=== PATIENT | male | born 1940 | race Caucasian/White ===

== ENCOUNTER 2017-06-28 14:03 | Emergency (ER) | payer MEDICARE ==
[2017-06-28] MEDS ORDERED: CLINDAMYCIN 600MG/4ML VIAL 600 MG in 0.9 % SODIUM CHLORIDE 100ML 100 ML IV ONE (14:24)
--- NOTE | 2017-06-28 14:30 | Emergency Department Record ---
History of Present Illness - General Chief complaint: Extremity Problem Stated complaint: SWELLING ON RT ELBOW Time Seen by Provider: 06/28/17 14:20 Source: Patient, Family Mode of Arrival: Ambulatory Limitations: No limitations - History of Present Illness Initial comments: 77 yo male presents with one day of right elbow redness, swelling and pain. He is unsure of any injury. No fever. He did have a small scab in that area. No pus or drainage. No history of gout or bursitis. He has full ROM without any pain. No swelling of the arm except mild locally at the right elbow. MD Complaint: Extremity pain, Extremity swelling, Joint pain, Joint swelling Onset/Timin -: Hour(s) Location: Right, Elbow History of Same: No Severity scale (1-10): 5 Consistency: Intermittent Improves with: Nothing Worsens with: Palpation - Related Data Home Medications Medication Instructions Recorded Confirmed Last Taken Albuterol Sulfate [Ventolin Hfa] 2 puff IH QID 06/18/16 06/28/17 06/28/17 Aspirin Chewable 81 mg PO DAILY 06/18/16 06/28/17 06/28/17 Atorvastatin Calcium [Lipitor] 20 mg PO DAILY 06/18/16 06/28/17 06/28/17 Furosemide [Lasix] 20 mg PO DAILY 06/28/17 06/28/17 06/28/17 Previous Rx's Medication Instructions Recorded Diltiazem HCl [Cardizem Cd] 240 mg PO DAILY #30 capcr 06/22/16 Warfarin Sodium [Coumadin] 5 mg PO DAILY #30 tablet 06/22/16 Clindamycin HCl [Cleocin HCl] 300 mg PO QID #28 capsule 06/28/17 Allergies Allergy/AdvReac Type Severity Reaction Status Date / Time No Known Allergies Allergy Unknown no Verified 06/28/17 14:10 [NO KNOWN ALLERGIES] allergies Travel Screening - Travel/Exposure Within Last 30 Days Have you traveled within the last 30 days?: No - Travel/Exposure Within Last Year Have you traveled outside the [place] in the last year?: No - Additonal Travel Details Have you been exposed to anyone with a communicable illness?: No - Travel Symptoms Symptom Screening: None Review of Systems Constitutional: Denies: Chills, Fever, Malaise, Weakness Eyes: Denies: Eye discharge ENT: Denies: Congestion, Throat pain Respiratory: Denies: Cough Cardiovascular: Denies: Chest pain, Syncope Endocrine: Denies: Fatigue Gastrointestinal: Denies: Abdominal pain, Diarrhea, Nausea, Vomiting Genitourinary: Denies: Dysuria, Frequency, Hematuria Musculoskeletal: Reports: As per HPI, Joint swelling. Denies: Arthralgia, Myalgia Skin: Reports: As per HPI, Change in color. Denies: Bruising Neurological: Denies: Headache Psychiatric: Denies: Anxiety Hematological/Lymphatic: Denies: Easy bleeding, Easy bruising, Swollen glands Past Medical History - SOCIAL HISTORY Smoking Status: Former smoker Alcohol Use: None Drug Use: None - RESPIRATORY Hx Respiratory Disorders: Yes Comment:: emphysema - CARDIOVASCULAR Hx Cardio Disorders: Yes Hx Hypertension: Yes Comment:: high cholesterol - NEURO Hx Neuro Disorders: No - GI Hx GI Disorders: No - Hx Genitourinary Disorders: No - ENDOCRINE Hx Endocrine Disorders: No - MUSCULOSKELETAL Hx Musculoskeletal Disorders: No - PSYCH Hx Psych Problems: No - HEMATOLOGY/ONCOLOGY Hx Hematology/Oncology Disorders: No Family Medical History Any Significant Family History?: Yes Hx Cancer: Mother Hx Heart Disease: Grandparents Hx Resp Disorders: Father Physical Exam - General General Appearance: Alert, Oriented x3, Cooperative, No acute distress Limitations: No limitations - Head Head exam: Normal inspection - Eye Eye exam: Normal appearance - ENT ENT exam: Normal exam Ear exam: Normal external inspection Nasal Exam: Normal inspection Mouth exam: Normal external inspection - Neck Neck exam: Normal inspection - Cardiovascular Cardiovascular Exam: Regular rate, Normal rhythm, Normal heart sounds Peripheral Pulses: 2+: Radial (R) - Rectal Rectal exam: Deferred - exam: Deferred - Extremities Extremities exam: Full ROM, Joint swelling (mild swelling and redness of the right posterior elbow, very soft, no fluctuance, no drainage, full ROM without any pain), Normal capillary refill. negative: Normal inspection, Pedal edema - Neurological Neurological exam: Alert, Oriented X3 - Psychiatric Psychiatric exam: Normal affect, Normal mood - Skin Skin exam: Erythema Course Vital Signs 06/28/17 14:16 Temperature 98.4 F Pulse Rate 108 H Respiratory 20 Rate Blood Pressure 127/73 Pulse Ox 93 L - Reevaluation(s) Reevaluation #1: The patient was seen and examined He has likely right elbow cellulitis vs bursitis 06/28/17 14:28 XR reviewed STS CW bursitis CBC reviewed. WBC 10.4 with Plt of 96. 06/28/17 15:20 Reevaluation #2: I SW Dr Fuentes He will recheck the patient in his office this week 06/28/17 15:36 Medical Decision Making - Lab Data Result diagrams: 06/28/17 15:00 06/28/17 15:00 Disposition Disposition: Discharge Clinical Impression: Cellulitis Qualifiers: Site of cellulitis: extremity Site of cellulitis of extremity: upper extremity Laterality: right Qualified Code(s): L03.113 - Cellulitis of right upper limb Bursitis Qualifiers: Bursitis location: elbow Elbow bursitis location: olecranon bursitis Laterality : right Qualified Code(s): M70.21 - Olecranon bursitis, right elbow Disposition: Home, Self-Care Condition: (1) Good Instructions: Elbow Bursitis (ED) Additional Instructions: Call Dr Fuentes for follow up this week to recheck the elbow Take the Antibiotic every 6 hours Keep the Roverto Wrap on to minimize swelling Prescriptions: Clindamycin HCl [Cleocin HCl] 300 mg PO QID #28 capsule Forms: Patient Portal Access Time of Disposition: 15:36 Quality - Quality Measures Quality Measures: N/A - Blood Pressure Screening Does Patient Have Any of the Following: No Blood Pressure Classification: Pre-Hypertensive BP Reading Systolic Measurement: 127 Diastolic Measurement: 73 Screening for High Blood Pressure: < Pre-Hypertensive BP, F/U Documented > [ G8950] Pre-Hypertensive Follow-up Interventions: Referral to alternative/primary care provider.
[2017-06-28 15:11] LABS: HEMATOCRIT 46.2 % (42.0-52.0); HEMOGLOBIN 15.7 gm/dl (14.0-18.0); MEAN CELL VOLUME 88.3 fl (81-97); PLATELET COUNT 96 K/uL (130-400); RED BLOOD COUNT 5.23 M/uL (4.40-5.70); WHITE BLOOD COUNT W/O DIFF 10.4 K/uL (4.2-12.2)
[2017-06-28 15:24] LABS: PLATELET ESTIMATE DECREASED (NORMAL)
[2017-06-28 15:27] LABS: ALB/GLOB RATIO 1.3 (1.1-1.8); ALKALINE PHOSPHATASE 90 U/L (38-126); ALT/SGPT 52 U/L (21-72); ANION GAP 6.6 (7-16); AST/SGOT 23 U/L (17-59); BILIRUBIN,TOTAL 0.74 mg/dL (0.2-1.3); BLOOD UREA NITROGEN 18 mg/dL (9-20); C-REACTIVE PROTEIN 2.3 mg/dL (0.0-0.9); CARBON DIOXIDE 31.4 mmol/L (22-30); CREATININE 1.1 mg/dL (0.66-1.25); EST GLOMERULAR FILTRATION RATE > 60 ml/min; GLUCOSE,RANDOM 190 mg/dL (70-110)
--- NOTE | 2017-06-29 12:46 | RADIOLOGY REPORT ---
EXAM: RIGHT ELBOW, FOUR VIEWS HISTORY: ACUTE RIGHT ELBOW PAIN AND REDNESS. TECHNIQUE: Four views of the right elbow were obtained. Comparison: None. FINDINGS: Prominent soft tissue swelling superficial to the right olecranon. No fracture or large joint effusion. No soft tissue gas. IMPRESSION: SOFT TISSUE SWELLING SUPERFICIAL TO THE RIGHT OLECRANON PROCESS WHICH MAY REFLECT BURSITIS. NO ACUTE OSSEOUS ABNORMALITY OF THE RIGHT ELBOW. JOB NUMBER: [id number] MTDD
== END 2017-06-28 15:46 | disposition home or self-care (01) ==
LOC: ER 14:03
DX: L03.113 Cellulitis of right upper limb (principal); M70.21 Olecranon bursitis, right elbow
CPT/HCPCS: 80053; 84550; 85027; 86140; 96365; 99284

== ENCOUNTER 2017-10-19 09:59 | Emergency (ER) | payer MEDICARE ==
[2017-10-19] MEDS: IPRATROPIUM/ALBUTEROL (0.5MG/3MG) NEB INH ONE (10:31)
--- NOTE | 2017-10-19 10:31 | Emergency Department Record ---
History of Present Illness - General Chief Complaint: Difficulty Breathing Stated Complaint: YING/COPD Time Seen by Provider: 10/19/17 10:19 Source: Patient, Family Mode of Arrival: Ambulatory - History of Present Illness Initial Comments: Patient SOB and cough for 5-6 days and family members have bronchitis. Using his albuterol neb every 4 hours over the last few days. Dry cough. History of Atrial fib with no chest pain and on coumadin Onset/Timin -: Days(s) Improves With: Bronchodilators Worsens With: Exertion Known History Of: COPD Context: Other Associated Symptoms: Cough Treatments Prior to Arrival: Bronchodilator Treatment Prior to Arrival Comment:: Neb - Related Data Home Oxygen Therapy: No Previous Rx's Medication Instructions Recorded Diltiazem HCl [Cardizem Cd] 240 mg PO DAILY #30 capcr 06/22/16 Warfarin Sodium [Coumadin] 5 mg PO DAILY #30 tablet 06/22/16 Azithromycin 250 mg PO DAILY #6 tablet 10/19/17 Prednisone [Prednisone 10Mg] 10 mg PO ASDIR #30 tab 10/19/17 Allergies Allergy/AdvReac Type Severity Reaction Status Date / Time No Known Allergies Allergy Unknown no Verified 10/19/17 10:04 [NO KNOWN ALLERGIES] allergies Travel Screening - Travel/Exposure Within Last 30 Days Have you traveled within the last 30 days?: No - Travel/Exposure Within Last Year Have you traveled outside the [place] in the last year?: No - Additonal Travel Details Have you been exposed to anyone with a communicable illness?: No - Travel Symptoms Symptom Screening: None Review of Systems Reviewed: No additional complaints except as noted below Constitutional: Reports: As per HPI. Denies: Chills, Fever, Malaise, Night sweats, Weakness, Weight change Eyes: Reports: As per HPI. Denies: Eye discharge, Eye pain, Photophobia, Vision change ENT: Reports: As per HPI. Denies: Congestion, Dental pain, Ear pain, Epistaxis , Hearing loss, Throat pain Respiratory: Reports: As per HPI, Cough, Dyspnea, Wheezes. Denies: Hemoptysis, Stridor Cardiovascular: Reports: As per HPI. Denies: Arrhythmia, Chest pain, Dyspnea on exertion, Edema, Murmurs, Orthopnea, Palpitations, Paroxysmal nocturnal dyspnea, Rheumatic Fever, Syncope Endocrine: Reports: As per HPI. Denies: Fatigue, Heat or cold intolerance, Polydipsia, Polyuria Gastrointestinal: Reports: As per HPI. Denies: Abdominal pain, Constipation, Diarrhea, Hematemesis, Hematochezia, Melena, Nausea, Vomiting Genitourinary: Reports: As per HPI. Denies: Dysuria, Frequency, Hematuria, Incontinence, Retention, Testicular pain, Testicular mass, Urgency Musculoskeletal: Reports: As per HPI. Denies: Arthralgia, Back pain, Gout, Joint swelling, Myalgia, Neck pain Skin: Reports: As per HPI. Denies: Bruising, Change in color, Change in hair/ nails, Lesions, Pruritus, Rash Neurological: Reports: As per HPI. Denies: Abnormal gait, Confusion, Headache, Numbness, Paresthesias, Seizure, Tingling, Tremors, Vertigo, Weakness Psychiatric: Reports: As per HPI. Denies: Anxiety, Auditory hallucinations, Depression, Homicidal thoughts, Suicidal thoughts, Visual hallucinations Hematological/Lymphatic: Reports: As per HPI. Denies: Anemia, Blood Clots, Easy bleeding, Easy bruising, Swollen glands Past Medical History - SOCIAL HISTORY Smoking Status: Former smoker Alcohol Use: None Drug Use: None - RESPIRATORY Hx Respiratory Disorders: Yes Comment:: emphysema - CARDIOVASCULAR Hx Cardio Disorders: Yes Hx Hypertension: Yes Hx Irregular Heartbeat: Yes (A fib) Comment:: high cholesterol - NEURO Hx Neuro Disorders: No - GI Hx GI Disorders: No - Hx Genitourinary Disorders: No - ENDOCRINE Hx Endocrine Disorders: No - MUSCULOSKELETAL Hx Musculoskeletal Disorders: No - PSYCH Hx Psych Problems: No - HEMATOLOGY/ONCOLOGY Hx Hematology/Oncology Disorders: No Family Medical History Any Significant Family History?: Yes Hx Cancer: Mother Hx Heart Disease: Grandparents Hx Resp Disorders: Father Physical Exam - General General Appearance: Alert, Oriented x3, Cooperative, Mild distress - Head Head exam: Normal inspection - Eye Eye exam: Normal appearance, PERRL Pupils: Normal accommodation - ENT ENT exam: Normal exam, Mucous membranes moist, Normal external ear exam, Normal orophraynx, TM's normal bilaterally Ear exam: Normal external inspection. negative: External canal tenderness Nasal Exam: Normal inspection. negative: Discharge, Sinus tenderness Mouth exam: Normal external inspection, Tongue normal Teeth exam: Normal inspection. negative: Dental caries Throat exam: Normal inspection. negative: Tonsillar erythema, Tonsillar exudate - Neck Neck exam: Normal inspection, Full ROM. negative: Tenderness - Respiratory Respiratory exam: Wheezes. negative: Respiratory distress - Cardiovascular Cardiovascular Exam: Regular rate, Normal rhythm, Normal heart sounds - GI/Abdominal GI/Abdominal exam: Soft, Normal bowel sounds. negative: Tenderness - Rectal Rectal exam: Deferred - exam: Deferred - Extremities Extremities exam: Normal inspection, Full ROM, Normal capillary refill. negative: Tenderness - Back Back exam: Reports: Normal inspection, Full ROM. Denies: Muscle spasm, Rash noted, Tenderness - Neurological Neurological exam: Alert, Normal gait, Oriented X3, Reflexes normal - Psychiatric Psychiatric exam: Normal affect, Normal mood - Skin Skin exam: Dry, Intact, Normal color, Warm Course Vital Signs 10/19/17 10:06 Temperature 97.6 F Pulse Rate 80 Respiratory 22 Rate Blood Pressure 154/107 Pulse Ox 86 L - Reevaluation(s) Reevaluation #1: breathing better after duoneb treatment 10/19/17 10:42 Medical Decision Making - Data Complexity MDM Data: Labs Ordered and/or Reviewed, X-Ray Ordered and/or Reviewed (chest copd, with chronic granulomas) - Lab Data Result diagrams: 10/19/17 10:15 10/19/17 10:15 Disposition Clinical Impression: COPD exacerbation, Bronchitis Atrial fibrillation Qualifiers: Atrial fibrillation type: chronic Qualified Code(s): I48.2 - Chronic atrial fibrillation Disposition: Home, Self-Care Condition: (1) Good Instructions: Emphysema (ED), COPD (Chronic Obstructive Pulmonary Disease) (ED) , Acute Bronchitis (ED) Additional Instructions: follow up with Dr. Fuentes on tuesday AM sooner if worse Prescriptions: Azithromycin 250 mg PO DAILY #6 tablet Prednisone [Prednisone 10Mg] 10 mg PO ASDIR #30 tab Forms: Patient Portal Access Time of Disposition: 12:00 Quality - Quality Measures Quality Measures: N/A - Blood Pressure Screening Does Patient Have Any of the Following: No Blood Pressure Classification: Hypertensive Reading Systolic Measurement: 154 Diastolic Measurement: 107 Screening for High Blood Pressure: < First Hypertensive BP, F/U Documented > [ G8950] First Hypertensive Follow-up Interventions: Referral to alternative/primary care provider.
[2017-10-19] MEDS: METHYLPREDNISOLONE PF 125MG/VIAL IVP ONE (10:41)
[2017-10-19 10:43] LABS: BASO % 0.6 % (0-6); EOS % 5.1 % (0-6); GRAN % 57.7 % (47-80); HEMATOCRIT 47.1 % (42.0-52.0); HEMOGLOBIN 15.7 gm/dl (14.0-18.0); LYMPH % 27.8 % (16-45); MEAN CELL VOLUME 90.1 fl (81-97); MEAN CORPUSCULAR HGB CONC 33.3 g/dl (32-36); MEAN PLATELET VOLUME 10.4 fl (7.4-10.4); MONO % 8.8 % (0-9); PLATELET COUNT 198 K/uL (130-400); RED BLOOD COUNT 5.23 M/uL (4.40-5.70); RED CELL DISTRIBUTION WIDTH 14.9 % (11.5-14.5); WHITE BLOOD COUNT W/O DIFF 6.2 K/uL (4.2-12.2)
[2017-10-19 10:48] LABS: BLOOD UREA NITROGEN 14 mg/dL (8-23); EST GLOMERULAR FILTRATION RATE > 60 mL/min
[2017-10-19 10:51] LABS: INR 1.9; PROTHROMBIN TIME (PATIENT) 20.7 SECONDS (9.5-12.1)
[2017-10-19 10:52] LABS: GLUCOSE,RANDOM 115 mg/dL (74-109)
[2017-10-19] MEDS: 0.9 % SODIUM CHLORIDE 500ML 500 ML IV SCH (11:50)
[2017-10-19] MEDS: CEFTRIAXONE SODIUM 1 GM in 0.9 % SODIUM CHLORIDE 100ML 100 ML IVPB ONE (11:54)
[2017-10-19] MEDS: AZITHROMYCIN 500 MG TABLET PO ONE (11:55)
--- NOTE | 2017-10-20 08:41 | RADIOLOGY REPORT ---
EXAM: CHEST, TWO VIEWS HISTORY: NONPRODUCTIVE COUGH FOR SIX DAYS, COPD. TECHNIQUE: Two views of the chest were obtained. Comparison: Chest x-ray 04/29/16. FINDINGS: The lungs are hyperinflated with diffuse lucency consistent with emphysema. Scattered calcified granulomata. The lungs are clear. The cardiac silhouette is not enlarged. The diaphragm is flattened. Osteopenia. IMPRESSION: 1. ADVANCED EMPHYSEMA. NO ACUTE INTRATHORACIC PROCESS. 2. OLD GRANULOMATOUS DISEASE. JOB NUMBER: [id number] MTDD
== END 2017-10-19 12:54 | disposition home or self-care (01) ==
LOC: ER 09:59
DX: J44.1 Chronic obstructive pulmonary disease with (acute) exacerbation (principal); J20.9 Acute bronchitis, unspecified; J44.0 Chronic obstructive pulmonary disease with (acute) lower respiratory infection; I48.2 Chronic atrial fibrillation; I10 Essential (primary) hypertension; Z79.01 Long term (current) use of anticoagulants; Z87.891 Personal history of nicotine dependence
CPT/HCPCS: 71020; 80048; 85025; 85610; 94640; 96365; 96375; 99284; J2930; J7040

== ENCOUNTER 2018-03-08 17:35 | Emergency (ER) | payer MEDICARE ==
[2018-03-08] MEDS: METHYLPREDNISOLONE PF 125MG/VIAL IVP ONE (17:50)
[2018-03-08] MEDS: IPRATROPIUM/ALBUTEROL (0.5MG/3MG) NEB INH ONE (17:59)
--- NOTE | 2018-03-08 18:03 | Emergency Department Record ---
History of Present Illness - General Chief Complaint: Cough Stated Complaint: COUGH,BACK PAIN,CHILLS, Time Seen by Provider: 03/08/18 17:44 Source: Patient, RN notes reviewed Mode of Arrival: Ambulatory - History of Present Illness Initial Comments: cough and low back pain and congestion tired and chilles and fever. Visiting nurse told him to go into get checked out. Patient is coughing up purulent phlegm MD Complaint: Cough Onset/Timin -: Days(s) Consistency: Intermittent - Related Data Previous Rx's Medication Instructions Recorded Diltiazem HCl [Cardizem Cd] 240 mg PO DAILY #30 capcr 06/22/16 Azithromycin 250 mg PO DAILY #6 tablet 03/08/18 Cephalexin [Keflex] 500 mg PO QID #40 cap 03/08/18 Prednisone [Prednisone 10Mg] 10 mg PO ASDIR #30 tab 03/08/18 Allergies Allergy/AdvReac Type Severity Reaction Status Date / Time No Known Allergies Allergy Unknown no Verified 03/08/18 17:39 [NO KNOWN ALLERGIES] allergies Travel Screening - Travel/Exposure Within Last 30 Days Have you traveled within the last 30 days?: No - Travel/Exposure Within Last Year Have you traveled outside the [place] in the last year?: No - Additonal Travel Details Have you been exposed to anyone with a communicable illness?: No - Travel Symptoms Symptom Screening: None Review of Systems Reviewed: No additional complaints except as noted below Constitutional: Reports: As per HPI. Denies: Chills, Fever, Malaise, Night sweats, Weakness, Weight change Eyes: Reports: As per HPI. Denies: Eye discharge, Eye pain, Photophobia, Vision change ENT: Reports: As per HPI. Denies: Congestion, Dental pain, Ear pain, Epistaxis , Hearing loss, Throat pain Respiratory: Reports: As per HPI, Cough. Denies: Dyspnea, Hemoptysis, Stridor, Wheezes Cardiovascular: Reports: As per HPI. Denies: Arrhythmia, Chest pain, Dyspnea on exertion, Edema, Murmurs, Orthopnea, Palpitations, Paroxysmal nocturnal dyspnea, Rheumatic Fever, Syncope Endocrine: Reports: As per HPI. Denies: Fatigue, Heat or cold intolerance, Polydipsia, Polyuria Gastrointestinal: Reports: As per HPI. Denies: Abdominal pain, Constipation, Diarrhea, Hematemesis, Hematochezia, Melena, Nausea, Vomiting Genitourinary: Reports: As per HPI. Denies: Dysuria, Frequency, Hematuria, Incontinence, Retention, Testicular pain, Testicular mass, Urgency Musculoskeletal: Reports: As per HPI. Denies: Arthralgia, Back pain, Gout, Joint swelling, Myalgia, Neck pain Skin: Reports: As per HPI. Denies: Bruising, Change in color, Change in hair/ nails, Lesions, Pruritus, Rash Neurological: Reports: As per HPI. Denies: Abnormal gait, Confusion, Headache, Numbness, Paresthesias, Seizure, Tingling, Tremors, Vertigo, Weakness Psychiatric: Reports: As per HPI. Denies: Anxiety, Auditory hallucinations, Depression, Homicidal thoughts, Suicidal thoughts, Visual hallucinations Hematological/Lymphatic: Reports: As per HPI. Denies: Anemia, Blood Clots, Easy bleeding, Easy bruising, Swollen glands Past Medical History - SOCIAL HISTORY Smoking Status: Former smoker Alcohol Use: None Drug Use: None - RESPIRATORY Hx Respiratory Disorders: Yes Hx COPD: Yes Comment:: emphysema - CARDIOVASCULAR Hx Cardio Disorders: Yes Hx Hypertension: Yes Hx Irregular Heartbeat: Yes (A fib, always in A-fib) Comment:: high cholesterol - NEURO Hx Neuro Disorders: No - GI Hx GI Disorders: No - Hx Genitourinary Disorders: No - ENDOCRINE Hx Endocrine Disorders: No - MUSCULOSKELETAL Hx Musculoskeletal Disorders: No - PSYCH Hx Psych Problems: No - HEMATOLOGY/ONCOLOGY Hx Hematology/Oncology Disorders: No Family Medical History Any Significant Family History?: Yes Hx Cancer: Mother Hx Heart Disease: Grandparents Hx Resp Disorders: Father Physical Exam - General General Appearance: Alert, Oriented x3, Cooperative, No acute distress - Head Head exam: Normal inspection - Eye Eye exam: Normal appearance, PERRL Pupils: Normal accommodation - ENT ENT exam: Normal exam, Mucous membranes moist, Normal external ear exam, Normal orophraynx, TM's normal bilaterally Ear exam: Normal external inspection. negative: External canal tenderness Nasal Exam: Normal inspection. negative: Discharge, Sinus tenderness Mouth exam: Normal external inspection, Tongue normal Teeth exam: Normal inspection. negative: Dental caries Throat exam: Normal inspection. negative: Tonsillar erythema, Tonsillar exudate - Neck Neck exam: Normal inspection, Full ROM. negative: Tenderness - Respiratory Respiratory exam: Decreased breath sounds. negative: Respiratory distress - Cardiovascular Cardiovascular Exam: Regular rate, Normal rhythm, Normal heart sounds - GI/Abdominal GI/Abdominal exam: Soft, Normal bowel sounds. negative: Tenderness - Rectal Rectal exam: Deferred - exam: Deferred - Extremities Extremities exam: Normal inspection, Full ROM, Normal capillary refill. negative: Tenderness - Back Back exam: Reports: Normal inspection, Full ROM. Denies: Muscle spasm, Rash noted, Tenderness - Neurological Neurological exam: Alert, Normal gait, Oriented X3, Reflexes normal - Psychiatric Psychiatric exam: Normal affect, Normal mood - Skin Skin exam: Dry, Intact, Normal color, Warm Course Vital Signs 03/08/18 17:43 Temperature 98.9 F Pulse Rate 110 H Respiratory 20 Rate Blood Pressure 138/103 Pulse Ox 94 L - Reevaluation(s) Reevaluation #1: talked to patient about hospital admission and outpatient therapy with close follow up and he wants to try treatment at home. 03/08/18 18:30 Medical Decision Making - Lab Data Result diagrams: 03/08/18 17:57 03/08/18 17:57 Disposition Clinical Impression: COPD (chronic obstructive pulmonary disease) with acute bronchitis COPD (chronic obstructive pulmonary disease) with emphysema Qualifiers: Emphysema type: panlobular Qualified Code(s): J43.1 - Panlobular emphysema Pneumonia Qualifiers: Pneumonia type: due to unspecified organism Laterality: right Lung location: lower lobe of lung Qualified Code(s): J18.1 - Lobar pneumonia, unspecified organism Disposition: Home, Self-Care Condition: (1) Good Instructions: Pneumonitis (ED), COPD (Chronic Obstructive Pulmonary Disease) ( ED) Additional Instructions: follow up with Dr. Fuentes tomorrow at 1 am If breathing gets worse return to the ED Prescriptions: Azithromycin 250 mg PO DAILY #6 tablet Cephalexin [Keflex] 500 mg PO QID #40 cap Prednisone [Prednisone 10Mg] 10 mg PO ASDIR #30 tab Forms: Patient Portal Access Time of Disposition: 18:37 Quality - Quality Measures Quality Measures: N/A - Blood Pressure Screening Does Patient Have Any of the Following: No, Active Dx of HTN Blood Pressure Classification: Hypertensive Reading Systolic Measurement: 138 Diastolic Measurement: 103 Screening for High Blood Pressure: Patient Exclusion, Hx of HTN [G9744]
[2018-03-08 18:05] LABS: BASO % 0.1 % (0-6); EOS % 1.1 % (0-6); GRAN % 77.9 % (47-80); HEMOGLOBIN 13.3 gm/dl (14.0-18.0); LYMPH % 11.9 % (16-45); MEAN CELL VOLUME 90.3 fl (81-97); MEAN CORPUSCULAR HGB CONC 32.4 g/dl (32-36); MEAN PLATELET VOLUME 10.1 fl (7.4-10.4); PLATELET COUNT 154 K/uL (130-400); RED BLOOD COUNT 4.54 M/uL (4.40-5.70); RED CELL DISTRIBUTION WIDTH 14.6 % (11.5-14.5); WHITE BLOOD COUNT W/O DIFF 8.9 K/uL (4.2-12.2)
[2018-03-08 18:08] LABS: MEAN CORPUSCULAR HEMOGLOBIN 29.2 pg (27-33)
[2018-03-08 18:15] LABS: BLOOD UREA NITROGEN 18 mg/dL (8-23); CREATININE 1.1 mg/dL (0.7-1.2); EST GLOMERULAR FILTRATION RATE > 60 mL/min
[2018-03-08 18:18] LABS: GLUCOSE,RANDOM 134 mg/dL (74-109); INR 2.9; PROTHROMBIN TIME (PATIENT) 31.3 SECONDS (9.5-12.1)
[2018-03-08] MEDS: CEFTRIAXONE SODIUM 1 GM in 0.9 % SODIUM CHLORIDE 100ML 100 ML IVPB ONE (18:24)
[2018-03-08] MEDS: AZITHROMYCIN 500 MG TABLET PO ONE (18:28)
--- NOTE | 2018-03-09 15:19 | RADIOLOGY REPORT ---
EXAM: CHEST, TWO VIEWS HISTORY: COUGH. TECHNIQUE: Frontal and lateral views of the chest were obtained. Comparison: 10/19/17 chest. FINDINGS: The heart size is normal. Severe emphysematous changes are noted bilaterally. Superimposed air space opacities in the lateral right upper lobe and right lung base suspicious for superimposed pneumonia. Calcified granulomata in the left lung base. Small right pleural effusion is also suggested. Osteopenia. No pneumothorax. IMPRESSION: SEVERE UNDERLYING EMPHYSEMATOUS CHANGES WITH AREAS OF AIR SPACE OPACITY WORRISOME FOR PNEUMONIA IN THE LATERAL RIGHT UPPER LOBE AND RIGHT LUNG BASE. SMALL RIGHT PLEURAL EFFUSION ALSO PRESENT. RECOMMEND FOLLOW-UP UNTIL RESOLUTION. JOB NUMBER: [id number] MTDD
== END 2018-03-08 18:50 | disposition home or self-care (01) ==
LOC: ER 17:35
DX: J18.1 Lobar pneumonia, unspecified organism (principal); J43.1 Panlobular emphysema; J20.9 Acute bronchitis, unspecified; I48.91 Unspecified atrial fibrillation; I10 Essential (primary) hypertension; Z87.891 Personal history of nicotine dependence
CPT/HCPCS: 71046; 80048; 85025; 85610; 94640; 96365; 96375; 99284; J2930

== ENCOUNTER 2018-09-22 15:00 | Emergency (ER) | payer MEDICARE ==
--- NOTE | 2018-09-22 15:24 | Emergency Department Record ---
History of Present Illness - General Chief Complaint: Shortness of breath Stated Complaint: YING Time Seen by Provider: 09/22/18 15:17 Source: Patient, Family Mode of Arrival: Ambulatory Limitations: No limitations - History of Present Illness Initial Comments: 78 yo male presents with shortness of breath that has progressed over the last month. The last week he has worsened where he is short of breath with any walking. He has a cough that is intermittently productive with some yellow phlegm. No chest pain. He has had some leg swelling. He has seem his doctor and cardiology recently for some of these symptoms. He is a former smoker. He has COPD, HTN, Atrial Fibrillation, . No nausea, vomiting, or diarrhea. No rash. MD Complaint: Cough, Shortness of breath Onset/Timin -: Week(s) Severity: Moderate Quality: Other Improves With: Nothing Worsens With: Exertion, Lying flat Known History Of: COPD Context: Recent URI Associated Symptoms: Denies other symptoms Treatments Prior to Arrival: Bronchodilator - Related Data Home Oxygen Therapy: Yes Home Oxygen Amount: 2 Liters Home Medications Medication Instructions Recorded Confirmed Last Taken Diltiazem HCl [Cardizem Cd] 240 mg PO BID 09/22/18 09/22/18 09/22/18 Furosemide [Lasix] 20 mg PO DAILY 09/22/18 09/22/18 09/22/18 Ipratropium/Albuterol [Duoneb] 3 ml IH Q4H 09/22/18 09/22/18 09/22/18 Allergies Allergy/AdvReac Type Severity Reaction Status Date / Time No Known Allergies Allergy Unknown no Verified 09/22/18 15:11 [NO KNOWN ALLERGIES] allergies Travel Screening - Travel/Exposure Within Last 30 Days Have you traveled within the last 30 days?: No Review of Systems Constitutional: Denies: Chills, Fever, Malaise, Weakness Eyes: Denies: Eye discharge, Eye pain, Photophobia, Vision change ENT: Reports: Congestion. Denies: Throat pain Respiratory: Reports: Cough, Dyspnea. Denies: Hemoptysis, Stridor, Wheezes Cardiovascular: Reports: Dyspnea on exertion, Edema. Denies: Chest pain, Palpitations, Syncope Endocrine: Denies: Fatigue, Polydipsia, Polyuria Gastrointestinal: Denies: Diarrhea, Nausea, Vomiting Genitourinary: Denies: Dysuria, Frequency, Hematuria Musculoskeletal: Denies: Arthralgia, Back pain, Neck pain Skin: Denies: Bruising, Change in color, Rash Neurological: Denies: Confusion, Headache Psychiatric: Denies: Anxiety Hematological/Lymphatic: Denies: Easy bleeding, Easy bruising Past Medical History - SOCIAL HISTORY Smoking Status: Former smoker Alcohol Use: None Drug Use: None - RESPIRATORY Hx Respiratory Disorders: Yes Hx COPD: Yes Comment:: emphysema - CARDIOVASCULAR Hx Cardio Disorders: Yes Hx Edema: Yes Hx Hypertension: Yes Hx Irregular Heartbeat: Yes (A fib, always in A-fib) Comment:: high cholesterol - NEURO Hx Neuro Disorders: No - GI Hx GI Disorders: No - Hx Genitourinary Disorders: No - ENDOCRINE Hx Endocrine Disorders: No - MUSCULOSKELETAL Hx Musculoskeletal Disorders: No - PSYCH Hx Psych Problems: No - HEMATOLOGY/ONCOLOGY Hx Hematology/Oncology Disorders: No Family Medical History Any Significant Family History?: Yes Hx Cancer: Mother Hx Heart Disease: Grandparents Hx Resp Disorders: Father Physical Exam - General General Appearance: Alert, Oriented x3, Cooperative, No acute distress Limitations: No limitations - Head Head exam: Atraumatic, Normal inspection - Eye Eye exam: Normal appearance. negative: Conjunctival injection, Scleral icterus - ENT ENT exam: Normal exam, Mucous membranes moist Ear exam: Normal external inspection Nasal Exam: Normal inspection Mouth exam: Normal external inspection - Neck Neck exam: Normal inspection, Full ROM. negative: Tenderness - Respiratory Respiratory exam: Accessory muscle use, Decreased breath sounds, Prolonged expiratory, Wheezes. negative: Normal lung sounds bilaterally - Cardiovascular Cardiovascular Exam: Normal rhythm, Normal heart sounds, Tachycardia Peripheral Pulses: 2+: Radial (R), Radial (L) - GI/Abdominal GI/Abdominal exam: Soft, Hypoactive bowel sounds. negative: Tenderness - Rectal Rectal exam: Deferred - exam: Deferred - Extremities Extremities exam: Pedal edema (bilateral symmetric). negative: Normal inspection - Back Back exam: Denies: CVA tenderness (R), CVA tenderness (L) - Neurological Neurological exam: Alert, Oriented X3 - Psychiatric Psychiatric exam: Normal affect, Normal mood - Skin Skin exam: Dry, Intact, Normal color, Warm Course Vital Signs 09/22/18 15:03 Temperature 98.3 F Pulse Rate 124 H Respiratory 24 Rate Blood Pressure 186/116 Pulse Ox 88 L - Reevaluation(s) Reevaluation #1: EKG 1522 Atrial fibrillation rate 107, intervals normal, axis normal, ST normal, No changes from 09/11/18 09/22/18 15:35 09/22/18 16:26 The CBC was reviewed. No acute changes The CXR demonstrates severe emphysema, right lower lobe infiltrate, effusion ( small) 09/22/18 17:18 The CBC was reviewed. No acute changes. The Troponin is indeterminate at 0.036 The BNP is elevated at 1500 CMP is otherwise normal 09/22/18 17:20 INR is 3.0 The source for the patient's shortness of breath is likely multifactorial with pneumonia in the RLE, CHF with peripheral edema and effusion, and his atrial fibrillation. 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 09/22/18 17:34 09/22/18 17:[address] Kimball He accepts the patient for transfer Medical Decision Making - Lab Data Result diagrams: 09/22/18 15:55 09/22/18 15:55 Disposition Disposition: Transfer Clinical Impression: COPD (chronic obstructive pulmonary disease) with emphysema, Pneumonia, Atrial fibrillation, Pleural effusion, CHF (congestive heart failure), Elevated troponin Disposition: Acute Care Hospital Transfer Transfer To: [facility] [place] Reason For Transfer: COPD,AFib,[place] Accepting Physician: Rehana Time Discussed w/Accepting Physician: 17:40 Condition: (2) Stable Forms: Patient Portal Access Time of Disposition: 17:36 Quality - Quality Measures Quality Measures: N/A - Blood Pressure Screening Does Patient Have Any of the Following: Active Dx of HTN Blood Pressure Classification: Hypertensive Reading Systolic Measurement: 186 Diastolic Measurement: 116 Screening for High Blood Pressure: Patient Exclusion, Hx of HTN [G9744]
[2018-09-22] MEDS ORDERED: IPRATROPIUM/ALBUTEROL (0.5MG/3MG) NEB INH ONE (15:25)
[2018-09-22] MEDS ORDERED: METHYLPREDNISOLONE PF 125MG/VIAL IVP ONE (15:25)
[2018-09-22] MEDS ORDERED: FUROSEMIDE IV 40MG/4ML VIAL IVP ONE (16:13)
[2018-09-22 16:18] LABS: BASO % 0.2 % (0-6); EOS % 2.3 % (0-6); GRAN % 68.1 % (47-80); HEMATOCRIT 38.5 % (42.0-52.0); LYMPH % 20.3 % (16-45); MEAN CORPUSCULAR HGB CONC 31.2 g/dl (32-36); MEAN PLATELET VOLUME 10.3 fl (7.4-10.4); MONO % 9.1 % (0-9); PLATELET COUNT 231 K/uL (130-400); RED BLOOD COUNT 4.14 M/uL (4.40-5.70); RED CELL DISTRIBUTION WIDTH 15.1 % (11.5-14.5); WHITE BLOOD COUNT W/O DIFF 10.4 K/uL (4.2-12.2)
[2018-09-22 16:22] LABS: MEAN CORPUSCULAR HEMOGLOBIN 28.9 pg (27-33)
[2018-09-22] MEDS ORDERED: AZITHROMYCIN 500 MG TABLET PO ONE (16:26)
[2018-09-22] MEDS ORDERED: CEFTRIAXONE SODIUM 1 GM in 0.9 % SODIUM CHLORIDE 100ML 100 ML IVPB ONE (16:26)
[2018-09-22 16:32] LABS: BLOOD UREA NITROGEN 16 mg/dL (8-23); CREATININE 1.1 mg/dL (0.7-1.2); EST GLOMERULAR FILTRATION RATE > 60 mL/min; PARTIAL THROMBOPLASTIN TIME 51.6 SECONDS (24.5-39.1); PROTHROMBIN TIME (PATIENT) 29.5 SECONDS (9.5-12.1)
[2018-09-22 16:33] LABS: TOTAL PROTEIN 7.4 g/dL (6.6-8.7)
[2018-09-22 16:35] LABS: GLUCOSE,RANDOM 130 mg/dL (74-109)
[2018-09-22 16:37] LABS: ALB/GLOB RATIO 1.3 (1.1-1.8); ALBUMIN 4.2 g/dL (4.0-5.0); ALKALINE PHOSPHATASE 118 U/L (40-129); ALT/SGPT 19 U/L (<41); AST/SGOT 22 U/L (10.0-50.0)
[2018-09-22] MEDS ORDERED: ALBUTEROL SULFATE (0.083%) 2.5 MG/3 ML NEB INH ONE (17:34)
--- NOTE | 2018-09-23 22:48 | RADIOLOGY REPORT ---
EXAM: CHEST 2 VIEWS HISTORY: DIFFICULTY IN BREATHING. TECHNIQUE: Frontal and lateral views of the chest were performed. COMPARISON: 09/11/2018. FINDINGS: The lungs are hyperinflated. There is a right lower lobe infiltrate/ pleural effusion. There is osteopenia. Compression fracture deformities in the mid thoracic spine. IMPRESSION: 1. HYPERINFLATED LUNGS WITH RIGHT LOWER LOBE INFILTRATE/PLEURAL EFFUSION. 2. OSTEOPENIA. JOB NUMBER: [id number] MTDD
== END 2018-09-22 18:53 | disposition short-term general hospital (02) ==
LOC: ER 15:00
DX: J18.9 Pneumonia, unspecified organism (principal); J91.8 Pleural effusion in other conditions classified elsewhere; J43.9 Emphysema, unspecified; I48.91 Unspecified atrial fibrillation; I50.9 Heart failure, unspecified; R79.89 Other specified abnormal findings of blood chemistry; I10 Essential (primary) hypertension; Z87.891 Personal history of nicotine dependence
CPT/HCPCS: 71046; 80053; 83880; 84484; 85025; 85610; 85730; 93005; 93010; 94640; 96365; 96375; 99285; J1940; J2930; J7613